=== PATIENT | male | born 1945 | race Caucasian/White ===

== ENCOUNTER 2023-04-13 11:52 | Inpatient (IN) | payer OTHER ==
[2023-04-13 12:21] VITALS: BMI 25.0
[2023-04-13] MEDS ORDERED: DEXTROSE 5% IVPB ONE (13:45)
[2023-04-13] MEDS ORDERED: ACYCLOVIR IVPB ONE (13:45)
[2023-04-13] MEDS ORDERED: WATER IVPB ONE (13:45)
[2023-04-13] MEDS ORDERED: FLUORESCEIN NA 1 EA STRIP OU ONE (14:14)
[2023-04-13] MEDS ORDERED: TETRACAINE 0.5% OPHTH SOLN 2 ML BOTTLE OU ONE (14:15)
[2023-04-13] MEDS ORDERED: FLUORESCEIN NA 1 EA STRIP ONE (14:17)
[2023-04-13] MEDS ORDERED: TETRACAINE 0.5% OPHTH SOLN 2 ML BOTTLE ONE (14:17)
[2023-04-13 14:44] LABS: BASO % 0.7 % (0-2.0); EOS % 1.4 % (0-4.5); HEMATOCRIT 41.3 % (35.4-49); HEMOGLOBIN 13.8 GM/dL (11.7-16.9); LYMPH % 24.3 % (8-40); MCH 30.5 pg (25.7-33.7); MCHC 33.4 g/dl (32.0-35.9); MEAN CELL VOLUME 91.2 fl (80-96); MEAN PLT VOLUME 8.4 fl (7.5-11.1); MONO % 7.9 % (3.8-10.2); NEUT % 65.7 % (42.8-82.8); PLATELET COUNT 179 10^3/uL (134-434); RBC 4.53 M/mm3 (4.00-5.60); RDW 13.9 % (11.9-15.9); WHITE BLOOD COUNT 6.4 K/mm3 (4.0-10.0)
[2023-04-13 15:11] LABS: POTASSIUM 4.3 mmol/L (3.5-5.1)
[2023-04-13 15:12] LABS: BLOOD UREA NITROGEN 15.8 mg/dL (7-18); INR 1.22 (0.83-1.09); PROTHROMBIN TIME (PATIENT) 14.1 SEC (9.7-13.0)
[2023-04-13 15:13] LABS: ALBUMIN 3.7 g/dl (3.4-5.0)
[2023-04-13 15:16] LABS: CREATININE 0.9 mg/dL (0.55-1.3)
[2023-04-13 15:17] LABS: BILIRUBIN,TOTAL 1.4 mg/dL (0.2-1)
[2023-04-13 15:18] LABS: TOT PROT 6.7 g/dl (6.4-8.2)
[2023-04-13] MEDS ORDERED: HALOPERIDOL LACTATE 5 MG/ML IM ONE (16:42)
[2023-04-13] MEDS ORDERED: MIDAZOLAM HCL 5 MG/1 ML Single Dose Vial IM ONE (16:42)
[2023-04-13] MEDS ORDERED: MIDAZOLAM HCL 5 MG/1 ML Single Dose Vial ONE (16:45)
[2023-04-13] MEDS ORDERED: HALOPERIDOL LACTATE 5 MG/ML ONE (16:45)
[2023-04-13] MEDS ORDERED: SODIUM CHLORIDE 1,000 ML IV SCH (20:30)
[2023-04-13] MEDS: DEXTROSE 5% IVPB SCH (21:50)
[2023-04-13] MEDS: WATER IVPB SCH (21:50)
[2023-04-13] MEDS: ACYCLOVIR IVPB SCH (21:50)
[2023-04-14] MEDS ORDERED: MIDAZOLAM HCL 5 MG/1 ML Single Dose Vial IM ONE (00:52)
[2023-04-14] MEDS ORDERED: HALOPERIDOL LACTATE 5 MG/ML IM ONE (00:52)
[2023-04-14] MEDS ORDERED: HALOPERIDOL LACTATE 5 MG/ML ONE (01:24)
[2023-04-14] MEDS ORDERED: MIDAZOLAM HCL 5 MG/1 ML Single Dose Vial ONE (01:35)
[2023-04-14] MEDS: ACYCLOVIR IVPB SCH ×2 (05:25→13:18)
[2023-04-14] MEDS: WATER IVPB SCH ×2 (05:25→13:18)
[2023-04-14] MEDS: DEXTROSE 5% IVPB SCH ×2 (05:25→13:18)
[2023-04-14] MEDS ORDERED: MAGNESIUM HYDROX 2400MG/30ML ORAL SUSPENSION 30 ML CUP PO PRN (08:32)
[2023-04-14] MEDS ORDERED: ERYTHROMYCIN 0.5% OPHTHALMIC OINTMENT 3.5 GM TUBE OD SCH (10:00)
[2023-04-14] MEDS ORDERED: ARTIFICIAL TEARS OPHTHALMIC DROPS OU SCH ×2 (10:00→14:00)
[2023-04-14] MEDS ORDERED: ERYTHROMYCIN 0.5% OPHTHALMIC OINTMENT 3.5 GM TUBE ONE (10:44)
[2023-04-14] MEDS ORDERED: levETIRAcetam 250 MG TABLET PO SCH (11:00)
[2023-04-14] MEDS ORDERED: MEMANTINE HCL 10 MG TABLET (FP) PO SCH (11:00)
[2023-04-14] MEDS ORDERED: FLUTICASONE PROP 0.05% 16 GM NASAL SPRAY NS SCH (11:00)
[2023-04-14] MEDS ORDERED: AMPICILLIN NA/SULBACTAM NA 3 GM in SODIUM CHLORIDE 100 ML IVPB SCH (12:30)
[2023-04-14] MEDS ORDERED: AMPICILLIN NA/SULBACTAM NA 3 GM VIAL ONE (12:51)
[2023-04-14 15:08] VITALS: BP 105/56; PULSE 85; RESP 20; TEMP 98.6
[2023-04-14] MEDS ORDERED: DOCUSATE SODIUM 100 MG CAPSULE (FP) PO SCH (22:00)
[2023-04-14] MEDS ORDERED: ATORVASTATIN CA 80 MG TABLET (FP) PO SCH (22:00)
== END 2023-04-14 15:37 | disposition short-term general hospital (02) | DRG 125 ==
LOC: JER 11:52 → JERBED 17:02 → OBSVTOIN 18:22
PROVIDERS: ADMIT Internal Medicine; ATTEND Internal Medicine
DX: B02.30 Zoster ocular disease, unspecified (principal); I10 Essential (primary) hypertension; I25.10 Atherosclerotic heart disease of native coronary artery without angina pectoris; E78.5 Hyperlipidemia, unspecified; E03.9 Hypothyroidism, unspecified; E80.6 Other disorders of bilirubin metabolism; G30.9 Alzheimer's disease, unspecified; F02.80 Dementia in other diseases classified elsewhere, unspecified severity, without behavioral disturbance, psychotic disturbance, mood disturbance, and anxiety; F32.A Depression, unspecified; K59.00 Constipation, unspecified; E53.8 Deficiency of other specified B group vitamins; Z85.46 Personal history of malignant neoplasm of prostate
CPT/HCPCS: 0241U-QW; 36415; 80053; 85025; 85610; 85730; 93005; 93010; 99285-25; G0378

== ENCOUNTER 2023-06-07 09:35 | Inpatient (IN) | payer OTHER ==
[2023-06-07 10:58] LABS: VENOUS BASE EXCESS 1.2 mmol/L (-2-2); VENOUS O2 SATURATION 24.2 % (70-80); VENOUS PCO2 54.8 mmHg (38-52); VENOUS PH 7.332 (7.310-7.410)
[2023-06-07 11:04] LABS: BASO % 0.9 % (0-2.0); EOS % 1.5 % (0-4.5); HEMATOCRIT 45.2 % (35.4-49); HEMOGLOBIN 15.5 GM/dL (11.7-16.9); LYMPH % 18.7 % (8-40); MCH 31.9 pg (25.7-33.7); MCHC 34.2 g/dl (32.0-35.9); MEAN CELL VOLUME 93.4 fl (80-96); MEAN PLT VOLUME 8.6 fl (7.5-11.1); MONO % 7.3 % (3.8-10.2); NEUT % 71.6 % (42.8-82.8); PLATELET COUNT 210 10^3/uL (134-434); RBC 4.84 M/mm3 (4.00-5.60); WHITE BLOOD COUNT 8.5 K/mm3 (4.0-10.0)
[2023-06-07 11:06] LABS: INR 1.1 (0.83-1.09); PROTHROMBIN TIME (PATIENT) 12.8 SEC (9.7-13.0)
[2023-06-07 11:19] LABS: EPI CELLS 5 /uL (0-25.1); HYALINE CASTS 0 /uL (0-3.1); URINE APPEARANCE CLEAR; URINE BACTERIA 45 /uL (0-1359); URINE BILIRUBIN NEGATIVE (NEGATIVE); URINE COLOR YELLOW; URINE GLUCOSE (UA) NEGATIVE (NEGATIVE); URINE KETONE NEGATIVE (NEGATIVE); URINE LEUK ESTERASE 1+ (NEGATIVE); URINE NITRITE NEGATIVE (NEGATIVE); URINE PROTEIN NEGATIVE (NEGATIVE); URINE RBC 5 /uL (0-23.9); URINE UROBILINOGEN 0.2 mg/dL (0.2-1.0); URINE WBC 55 /uL (0-25.8)
[2023-06-07 11:20] LABS: LACTIC ACID 2.2 mmol/L (0.4-2.0)
[2023-06-07 11:27] LABS: CALCIUM 10.4 mg/dL (8.5-10.1); MAGNESIUM 2.2 mg/dL (1.8-2.4)
[2023-06-07 11:28] LABS: ALBUMIN 4.4 g/dl (3.4-5.0); BLOOD UREA NITROGEN 17.3 mg/dL (7-18)
[2023-06-07 11:32] LABS: BILIRUBIN,TOTAL 0.9 mg/dL (0.2-1); TOT PROT 7.8 g/dl (6.4-8.2)
[2023-06-07] MEDS ORDERED: CEFTRIAXONE 1 GM/50 ML BAG ONE (15:21)
[2023-06-07] MEDS: CEFTRIAXONE 1,000 MG in DEXTROSE 5%-WATER - 50 ML IVPB ONE (15:32)
[2023-06-07] MEDS: SODIUM CHLORIDE 0.9% 500 ML INFUS.BAG IV ONE (15:32)
[2023-06-07] MEDS ORDERED: HALOPERIDOL 1 MG TABLET PO PRN (16:11)
[2023-06-07] MEDS ORDERED: levETIRAcetam 500 MG TABLET (FP) PO ONE (19:31)
[2023-06-07] MEDS: levETIRAcetam 250 MG TABLET PO SCH (19:36)
[2023-06-07] MEDS ORDERED: levETIRAcetam XR 750 MG TAB PO SCH (22:00)
[2023-06-07] MEDS ORDERED: ATORVASTATIN CA 80 MG TABLET (FP) ONE (22:30)
[2023-06-07] MEDS: risperiDONE 0.25 MG TABLET PO SCH (22:45)
[2023-06-07] MEDS: ATORVASTATIN CA 80 MG TABLET (FP) PO SCH (22:45)
[2023-06-07] MEDS: MEMANTINE HCL 10 MG TABLET (FP) PO SCH (22:45)
[2023-06-07] MEDS ORDERED: ACETAMINOPHEN 325 MG TABLET (FP) PO PRN (23:01)
[2023-06-07] MEDS ORDERED: MAGNESIUM HYDROX 2400MG/30ML ORAL SUSPENSION 30 ML CUP PO PRN (23:03)
[2023-06-08 00:07] VITALS: BMI 22.1
[2023-06-08] MEDS ORDERED: HALOPERIDOL 1 MG TABLET PO PRN (05:43)
[2023-06-08 08:03] LABS: HEMATOCRIT 39.8 % (35.4-49); HEMOGLOBIN 13.7 GM/dL (11.7-16.9); MCHC 34.4 g/dl (32.0-35.9); MEAN CELL VOLUME 93.1 fl (80-96); MEAN PLT VOLUME 8.3 fl (7.5-11.1); PLATELET COUNT 174 10^3/uL (134-434); RBC 4.28 M/mm3 (4.00-5.60); RDW 15.2 % (11.9-15.9); WHITE BLOOD COUNT 6.6 K/mm3 (4.0-10.0)
[2023-06-08 08:33] LABS: POTASSIUM 3.7 mmol/L (3.5-5.1)
[2023-06-08 08:36] LABS: CALCIUM 9.3 mg/dL (8.5-10.1)
[2023-06-08 08:37] LABS: BLOOD UREA NITROGEN 14.9 mg/dL (7-18)
[2023-06-08 08:38] LABS: ALBUMIN 3.8 g/dl (3.4-5.0); MAGNESIUM 2.1 mg/dL (1.8-2.4)
[2023-06-08 08:40] LABS: PHOSPHOROUS 2.7 mg/dL (2.5-4.9)
[2023-06-08 08:41] LABS: TOT PROT 6.7 g/dl (6.4-8.2)
[2023-06-08] MEDS: FLUTICASONE PROP 0.05% 16 GM NASAL SPRAY NS SCH (09:40)
[2023-06-08] MEDS: CEFTRIAXONE 1 GM in DEXTROSE 5%-WATER - 50 ML IVPB SCH (09:40)
[2023-06-08] MEDS: HALOPERIDOL LACTATE 5 MG/ML IM ONE (11:49)
[2023-06-08] MEDS: HALOPERIDOL LACTATE 5 MG/ML IM PRN (16:15)
[2023-06-08] MEDS: LORazepam 2 MG/ML SDV VIAL IVPUSH PRN (19:57)
[2023-06-08] MEDS: DOCUSATE SODIUM 100 MG CAPSULE (FP) PO SCH (21:46)
[2023-06-09] MEDS: risperiDONE 1 MG TABLET PO ONE (10:49)
[2023-06-10 09:36] LABS: HEMATOCRIT 38.6 % (35.4-49); HEMOGLOBIN 13.1 GM/dL (11.7-16.9); MCH 31.8 pg (25.7-33.7); MCHC 34.1 g/dl (32.0-35.9); MEAN CELL VOLUME 93.3 fl (80-96); PLATELET COUNT 156 10^3/uL (134-434); RBC 4.13 M/mm3 (4.00-5.60); RDW 14.9 % (11.9-15.9); WHITE BLOOD COUNT 6.6 K/mm3 (4.0-10.0)
[2023-06-10] MEDS: risperiDONE 1 MG TABLET PO SCH (09:57)
[2023-06-10 10:10] LABS: CALCIUM 8.7 mg/dL (8.5-10.1)
[2023-06-10 10:11] LABS: BLOOD UREA NITROGEN 18.4 mg/dL (7-18)
[2023-06-10 10:14] LABS: CREATININE 0.8 mg/dL (0.55-1.3)
[2023-06-10 22:17] VITALS: RESP 18
[2023-06-11 06:08] VITALS: BP 148/74; PULSE 50; TEMP 97.7
[2023-06-11] MEDS: ASPIRIN 81 MG CHEWABLE TABLETS PO SCH (10:57)
== END 2023-06-11 12:00 | DRG 689 ==
LOC: JER 09:35 → JERBED 13:58 → J7W 23:39
PROVIDERS: ADMIT Internal Medicine; ATTEND Internal Medicine
DX: N39.0 Urinary tract infection, site not specified (principal); G93.41 Metabolic encephalopathy; F03.92 Unspecified dementia, unspecified severity, with psychotic disturbance; E78.5 Hyperlipidemia, unspecified
CPT/HCPCS: 0241U-QW; 36415; 70450-TC; 70544-TC; 70547-TC; 70551-TC; 71045-TC-FY; 80048; 80053; 80177; 81003; 82803; 83605; 83735; 84100; 84443; 84484; 85025; 85027; 85610; 85730; 86850; 86900; 86901; 87040; 87086; 93005; 93010; 99285-25

== ENCOUNTER 2023-09-23 18:01 | Emergency (ER) | payer OTHER ==
[2023-09-23 18:31] VITALS: BMI 21.5
[2023-09-23 20:50] LABS: BASO % 0.7 % (0-2.0); EOS % 1.6 % (0-4.5); HEMATOCRIT 40.5 % (35.4-49); HEMOGLOBIN 13.7 GM/dL (11.7-16.9); LYMPH % 21.1 % (8-40); MCH 30.7 pg (25.7-33.7); MCHC 33.8 g/dl (32.0-35.9); MEAN CELL VOLUME 90.8 fl (80-96); MEAN PLT VOLUME 8.1 fl (7.5-11.1); MONO % 8.6 % (3.8-10.2); PLATELET COUNT 162 10^3/uL (134-434); RBC 4.46 M/mm3 (4.00-5.60); RDW 14.1 % (11.9-15.9); WHITE BLOOD COUNT 6.8 K/mm3 (4.0-10.0)
[2023-09-23 21:30] LABS: POTASSIUM 4.2 mmol/L (3.5-5.1)
[2023-09-23 21:32] LABS: BLOOD UREA NITROGEN 23.5 mg/dL (7-18); CALCIUM 8.9 mg/dL (8.5-10.1)
[2023-09-23 21:33] LABS: ALBUMIN 3.7 g/dl (3.4-5.0)
[2023-09-23 21:36] LABS: CREATININE 1.1 mg/dL (0.55-1.3)
[2023-09-23 21:37] LABS: BILIRUBIN,TOTAL 0.7 mg/dL (0.2-1); TOT PROT 6.6 g/dl (6.4-8.2)
[2023-09-24 00:55] LABS: EPI CELLS 2 /uL (0-25.1); HYALINE CASTS 0 /uL (0-3.1); URINE APPEARANCE CLEAR; URINE BACTERIA >9,000 /uL (0-1359); URINE BILIRUBIN NEGATIVE (NEGATIVE); URINE COLOR YELLOW; URINE GLUCOSE (UA) NEGATIVE (NEGATIVE); URINE KETONE NEGATIVE (NEGATIVE); URINE LEUK ESTERASE 1+ (NEGATIVE); URINE NITRITE POSITIVE (NEGATIVE); URINE PROTEIN NEGATIVE (NEGATIVE); URINE RBC 15 /uL (0-23.9); URINE UROBILINOGEN 0.2 mg/dL (0.2-1.0); URINE WBC 218 /uL (0-25.8)
[2023-09-24] MEDS: CEFTRIAXONE 1,000 MG in DEXTROSE 5%-WATER - 50 ML IVPB ONE (02:03)
[2023-09-24] MEDS ORDERED: CEFTRIAXONE 1 GM/50 ML BAG ONE (02:04)
[2023-09-24 02:05] VITALS: BP 119/72; PULSE 61; RESP 16; TEMP 97.1
[2023-09-24] MEDS: SODIUM CHLORIDE 0.9% 500 ML INFUS.BAG IV ONE (03:17)
== END 2023-09-24 06:01 ==
LOC: JER 18:01
DX: R45.1 Restlessness and agitation (principal); N39.0 Urinary tract infection, site not specified; F03.90 Unspecified dementia, unspecified severity, without behavioral disturbance, psychotic disturbance, mood disturbance, and anxiety
CPT/HCPCS: 36415; 70450-TC; 80053; 80177; 81003; 85025; 87086; 87186; 93005; 93010; 99285-25

== ENCOUNTER 2023-09-27 06:00 | Emergency (ER) | payer OTHER ==
[2023-09-27 06:10] VITALS: TEMP 98.8; BMI 19.0
[2023-09-27 06:38] LABS: EPI CELLS 8 /uL (0-25.1); HYALINE CASTS 0 /uL (0-3.1); PH,URINE 7.5 (5.0-8.0); URINE APPEARANCE CLEAR; URINE BACTERIA 5097 /uL (0-1359); URINE BILIRUBIN NEGATIVE (NEGATIVE); URINE COLOR YELLOW; URINE GLUCOSE (UA) NEGATIVE (NEGATIVE); URINE KETONE NEGATIVE (NEGATIVE); URINE LEUK ESTERASE TRACE (NEGATIVE); URINE NITRITE POSITIVE (NEGATIVE); URINE PROTEIN NEGATIVE (NEGATIVE); URINE RBC 5 /uL (0-23.9); URINE WBC 24 /uL (0-25.8)
[2023-09-27 07:01] LABS: POTASSIUM 4.6 mmol/L (3.5-5.1)
[2023-09-27 07:04] LABS: ALBUMIN 3.7 g/dl (3.4-5.0); BLOOD UREA NITROGEN 15.5 mg/dL (7-18); CALCIUM 8.9 mg/dL (8.5-10.1); MAGNESIUM 1.9 mg/dL (1.8-2.4)
[2023-09-27 07:06] LABS: CREATININE 0.8 mg/dL (0.55-1.3)
[2023-09-27 07:08] LABS: TOT PROT 6.7 g/dl (6.4-8.2)
[2023-09-27 07:52] LABS: RDW 14.2 % (11.9-15.9)
[2023-09-27] MEDS ORDERED: MAGNESIUM 1GM/D5W - 1 GM/100 ML IVPB IVPB ONE (07:53)
[2023-09-27 07:59] LABS: BASO % 1.1 % (0-2.0); EOS % 1.8 % (0-4.5); HEMATOCRIT 39.9 % (35.4-49); HEMOGLOBIN 13.8 GM/dL (11.7-16.9); LYMPH % 20.6 % (8-40); MCH 31.3 pg (25.7-33.7); MCHC 34.5 g/dl (32.0-35.9); MEAN CELL VOLUME 90.6 fl (80-96); MEAN PLT VOLUME 9.4 fl (7.5-11.1); MONO % 8.2 % (3.8-10.2); NEUT % 68.3 % (42.8-82.8); PLATELET COUNT 178 10^3/uL (134-434)
[2023-09-27 08:05] LABS: WHITE BLOOD COUNT 11.5 K/mm3 (4.0-10.0)
[2023-09-27 08:48] LABS: PLATELET ESTIMATE ADEQUATE
[2023-09-27] MEDS ORDERED: risperiDONE 0.5 MG TABLET ONE (09:57)
[2023-09-27] MEDS: risperiDONE 1 MG TABLET PO ONE (09:58)
[2023-09-27 13:57] VITALS: BP 133/78; PULSE 76; RESP 16
== END 2023-09-27 14:10 ==
LOC: JER 06:00
DX: R41.82 Altered mental status, unspecified (principal); R45.1 Restlessness and agitation; N39.0 Urinary tract infection, site not specified; Z20.822 Contact with and (suspected) exposure to COVID-19
CPT/HCPCS: 0241U-QW; 36415; 71045-TC-FY; 80053; 81003; 82962; 83735; 85025; 87086; 87186; 93005; 93010; 99285-25

== ENCOUNTER 2023-11-03 12:15 | Emergency (ER) | payer OTHER ==
[2023-11-03 13:04] VITALS: BMI 24.3
[2023-11-03] MEDS: SODIUM CHLORIDE 0.9% 500 ML INFUS.BAG IV ONE (13:48)
[2023-11-03 13:49] LABS: BASO % 0.3 % (0-2.0); EOS % 0.6 % (0-4.5); HEMATOCRIT 39.8 % (35.4-49); HEMOGLOBIN 13.5 GM/dL (11.7-16.9); LYMPH % 14.2 % (8-40); MCH 30.8 pg (25.7-33.7); MCHC 33.9 g/dl (32.0-35.9); MEAN CELL VOLUME 90.7 fl (80-96); MEAN PLT VOLUME 8.4 fl (7.5-11.1); MONO % 5.5 % (3.8-10.2); NEUT % 79.4 % (42.8-82.8); PLATELET COUNT 172 10^3/uL (134-434); RBC 4.39 M/mm3 (4.00-5.60); RDW 14.9 % (11.9-15.9); WHITE BLOOD COUNT 8.4 K/mm3 (4.0-10.0)
[2023-11-03 13:52] LABS: EPI CELLS 17 /uL (0-25.1); HYALINE CASTS 1 /uL (0-3.1); URINE APPEARANCE CLEAR; URINE BACTERIA 9 /uL (0-1359); URINE BILIRUBIN NEGATIVE (NEGATIVE); URINE COLOR YELLOW; URINE GLUCOSE (UA) NEGATIVE (NEGATIVE); URINE KETONE NEGATIVE (NEGATIVE); URINE LEUK ESTERASE NEGATIVE (NEGATIVE); URINE NITRITE NEGATIVE (NEGATIVE); URINE PROTEIN 1+ (NEGATIVE); URINE RBC 20 /uL (0-23.9); URINE WBC 14 /uL (0-25.8)
[2023-11-03 14:07] LABS: POTASSIUM 4.5 mmol/L (3.5-5.1)
[2023-11-03 14:09] LABS: ALBUMIN 3.6 g/dl (3.4-5.0); BLOOD UREA NITROGEN 18.4 mg/dL (7-18); CALCIUM 9.5 mg/dL (8.5-10.1)
[2023-11-03 14:12] LABS: CREATININE 1.1 mg/dL (0.55-1.3)
[2023-11-03 14:14] LABS: TOT PROT 6.3 g/dl (6.4-8.2)
[2023-11-03 15:46] VITALS: TEMP 97.6
[2023-11-03] MEDS ORDERED: HALOPERIDOL LACTATE 5 MG/ML ONE ×2 (16:04→16:08)
[2023-11-03] MEDS: HALOPERIDOL LACTATE 5 MG/ML IM ONE (16:21)
[2023-11-03 18:45] VITALS: BP 113/77; PULSE 74; RESP 18
== END 2023-11-03 18:00 ==
LOC: JER 12:15
PROC: 3E023GC Introduction of Other Therapeutic Substance into Muscle, Percutaneous Approach (ICD-10-PCS; principal; 2023-11-03)
DX: R41.82 Altered mental status, unspecified (principal)
CPT/HCPCS: 36415; 70450-TC; 71045-TC-FY; 80053; 81003; 82962; 85025; 87086; 99285-25

== ENCOUNTER 2023-11-11 11:27 | Emergency (ER) | payer OTHER ==
[2023-11-11 12:07] VITALS: BMI 25.8
[2023-11-11 12:41] LABS: BASO % 0.5 % (0-2.0); HEMATOCRIT 39.6 % (35.4-49); HEMOGLOBIN 13.2 GM/dL (11.7-16.9); LYMPH % 25.2 % (8-40); MCH 30.7 pg (25.7-33.7); MCHC 33.4 g/dl (32.0-35.9); MEAN CELL VOLUME 91.9 fl (80-96); MONO % 8.5 % (3.8-10.2); NEUT % 63.8 % (42.8-82.8); PLATELET COUNT 169 10^3/uL (134-434); RDW 14.7 % (11.9-15.9); WHITE BLOOD COUNT 5.4 K/mm3 (4.0-10.0)
[2023-11-11 12:45] LABS: INR 1.1 (0.83-1.09); PROTHROMBIN TIME (PATIENT) 12.6 SEC (9.7-13.0)
[2023-11-11 12:47] LABS: ACTIVATED PTT 27.4 SECONDS (25.2-36.5)
[2023-11-11 12:59] LABS: POTASSIUM 4.1 mmol/L (3.5-5.1)
[2023-11-11 13:01] LABS: BLOOD UREA NITROGEN 19.2 mg/dL (7-18); CALCIUM 9.4 mg/dL (8.5-10.1)
[2023-11-11 13:03] LABS: ALBUMIN 3.7 g/dl (3.4-5.0); MAGNESIUM 2.4 mg/dL (1.8-2.4)
[2023-11-11 13:05] LABS: CREATININE 0.9 mg/dL (0.55-1.3)
[2023-11-11 13:06] LABS: TOT PROT 6.5 g/dl (6.4-8.2)
[2023-11-11 13:08] LABS: BILIRUBIN,TOTAL 1.1 mg/dL (0.2-1)
[2023-11-11] MEDS: SODIUM CHLORIDE 0.9% 500 ML INFUS.BAG IV ONE (14:23)
[2023-11-11 15:23] LABS: URINE APPEARANCE CLEAR; URINE BILIRUBIN NEGATIVE (NEGATIVE); URINE COLOR YELLOW; URINE GLUCOSE (UA) NEGATIVE (NEGATIVE); URINE KETONE NEGATIVE (NEGATIVE); URINE LEUK ESTERASE NEGATIVE (NEGATIVE); URINE NITRITE NEGATIVE (NEGATIVE); URINE PROTEIN NEGATIVE (NEGATIVE)
[2023-11-12 03:57] VITALS: BP 128/91; PULSE 82; RESP 13; TEMP 97.8
== END 2023-11-12 03:58 ==
LOC: JER 11:27
DX: F03.90 Unspecified dementia, unspecified severity, without behavioral disturbance, psychotic disturbance, mood disturbance, and anxiety (principal); R29.6 Repeated falls; W18.30XA Fall on same level, unspecified, initial encounter
CPT/HCPCS: 36415; 70450-TC; 71045-TC-FY; 72125-TC; 80053; 81003; 83735; 84484; 85025; 85610; 85730; 87086; 93005; 93010; 99285-25

== ENCOUNTER 2023-12-18 19:42 | Inpatient (IN) | payer OTHER ==
[2023-12-18 20:29] VITALS: BMI 23.5
[2023-12-18 21:07] LABS: BASO % 0.5 % (0-2.0); EOS % 2.1 % (0-4.5); HEMATOCRIT 39.4 % (35.4-49); HEMOGLOBIN 13.3 GM/dL (11.7-16.9); LYMPH % 21.5 % (8-40); MCH 30.8 pg (25.7-33.7); MCHC 33.8 g/dl (32.0-35.9); MEAN PLT VOLUME 8.1 fl (7.5-11.1); MONO % 9.5 % (3.8-10.2); NEUT % 66.4 % (42.8-82.8); PLATELET COUNT 172 10^3/uL (134-434); RBC 4.33 M/mm3 (4.00-5.60); RDW 14.2 % (11.9-15.9); WHITE BLOOD COUNT 5.6 K/mm3 (4.0-10.0)
[2023-12-18 21:18] LABS: INR 1.14 (0.83-1.09); PROTHROMBIN TIME (PATIENT) 12.8 SEC (9.7-13.0)
[2023-12-18 21:27] LABS: ALBUMIN 3.6 g/dl (3.4-5.0); MAGNESIUM 2.3 mg/dL (1.8-2.4)
[2023-12-18 21:32] LABS: BILIRUBIN,TOTAL 0.5 mg/dL (0.2-1); TOT PROT 6.3 g/dl (6.4-8.2)
[2023-12-18] MEDS: SODIUM CHLORIDE 0.9% 500 ML INFUS.BAG IV ONE (22:15)
[2023-12-18 23:43] LABS: HIV INTERPRETATION NEGATIVE (NEGATIVE)
[2023-12-19 00:35] LABS: EPI CELLS 1 /uL (0-25.1); HYALINE CASTS 5 /uL (0-3.1); PH,URINE 5.5 (5.0-8.0); URINE APPEARANCE CLEAR; URINE BACTERIA 119 /uL (0-1359); URINE BILIRUBIN NEGATIVE (NEGATIVE); URINE COLOR YELLOW; URINE GLUCOSE (UA) NEGATIVE (NEGATIVE); URINE KETONE NEGATIVE (NEGATIVE); URINE LEUK ESTERASE 2+ (NEGATIVE); URINE NITRITE NEGATIVE (NEGATIVE); URINE PROTEIN TRACE (NEGATIVE); URINE RBC 23 /uL (0-23.9); URINE WBC 888 /uL (0-25.8)
[2023-12-19] MEDS: PIPERACILLIN/TAZOB 4.5 GM 4.5 GM in DEXTROSE 5%-WATER 100 ML IVPB ONE (01:11)
[2023-12-19] MEDS ORDERED: MEROPENEM 1 GM VIAL (RESTRICTED TO ID) IVPB ONE (01:16)
[2023-12-19] MEDS ORDERED: DEXTROSE 5%-WATER 100 ML IVPB ONE (01:17)
[2023-12-19] MEDS: MEROPENEM 1 GM in DEXTROSE 5%-WATER 100 ML IVPB ONE (01:18)
[2023-12-19 08:53] LABS: HEMATOCRIT 40.3 % (35.4-49); HEMOGLOBIN 13.5 GM/dL (11.7-16.9); MCH 30.6 pg (25.7-33.7); MCHC 33.5 g/dl (32.0-35.9); MEAN CELL VOLUME 91.4 fl (80-96); MEAN PLT VOLUME 8.5 fl (7.5-11.1); PLATELET COUNT 170 10^3/uL (134-434); RBC 4.41 M/mm3 (4.00-5.60); RDW 13.8 % (11.9-15.9); WHITE BLOOD COUNT 5.2 K/mm3 (4.0-10.0)
[2023-12-19 09:09] LABS: POTASSIUM 3.9 mmol/L (3.5-5.1)
[2023-12-19] MEDS: ERTAPENEM SODIUM 1 GM in SODIUM CHLORIDE 50 ML IVPB SCH (09:11)
[2023-12-19 09:12] LABS: ALBUMIN 3.5 g/dl (3.4-5.0); BLOOD UREA NITROGEN 14.9 mg/dL (7-18); CALCIUM 9.2 mg/dL (8.5-10.1); MAGNESIUM 2.2 mg/dL (1.8-2.4)
[2023-12-19 09:15] LABS: CREATININE 0.9 mg/dL (0.55-1.3)
[2023-12-19] MEDS: MEMANTINE HCL 10 MG TABLET (FP) PO SCH (09:15)
[2023-12-19] MEDS: QUEtiapine FUMARATE 25 MG TABLET PO SCH (09:15)
[2023-12-19 09:16] LABS: PHOSPHOROUS 2.5 mg/dL (2.5-4.9)
[2023-12-19 09:17] LABS: TOT PROT 6.2 g/dl (6.4-8.2)
[2023-12-19] MEDS ORDERED: PATIENT'S OWN MEDICATION (NON-FORMULARY) (Levetiracetam [Levetiracetam] 750 MG Tablet) PO SCH (10:00)
[2023-12-19] MEDS: LACTATED RINGERS SOLUTION 1,000 ML/1,000 ML INFUS.BAG IV SCH (16:52)
[2023-12-19] MEDS ORDERED: QUEtiapine FUMARATE 25 MG TABLET ONE (23:55)
[2023-12-19] MEDS ORDERED: ATORVASTATIN CA 80 MG TABLET (FP) ONE (23:55)
[2023-12-20] MEDS ORDERED: traZODone HCL 50 MG TABLET (FP) ONE (00:02)
[2023-12-20] MEDS: ATORVASTATIN CA 80 MG TABLET (FP) PO SCH (00:36)
[2023-12-20] MEDS: traZODone HCL 50 MG TABLET (FP) PO SCH (00:36)
[2023-12-20] MEDS: QUEtiapine FUMARATE 25 MG TABLET PO SCH (00:37)
[2023-12-20 06:02] VITALS: RESP 18
[2023-12-20 08:42] LABS: HEMATOCRIT 39.4 % (35.4-49); HEMOGLOBIN 13.7 GM/dL (11.7-16.9); MCH 31.3 pg (25.7-33.7); MCHC 34.9 g/dl (32.0-35.9); MEAN CELL VOLUME 89.7 fl (80-96); MEAN PLT VOLUME 8.3 fl (7.5-11.1); PLATELET COUNT 162 10^3/uL (134-434); RBC 4.39 M/mm3 (4.00-5.60); RDW 13.7 % (11.9-15.9); WHITE BLOOD COUNT 4.8 K/mm3 (4.0-10.0)
[2023-12-20 08:58] LABS: POTASSIUM 3.8 mmol/L (3.5-5.1)
[2023-12-20 09:11] LABS: MAGNESIUM 2.2 mg/dL (1.8-2.4)
[2023-12-20 09:15] LABS: CREATININE 0.9 mg/dL (0.55-1.3); PHOSPHOROUS 2.9 mg/dL (2.5-4.9)
[2023-12-20] MEDS: HALOPERIDOL LACTATE 5 MG/ML IM ONE (14:36)
[2023-12-20] MEDS ORDERED: MEROPENEM 1 GM in DEXTROSE 5%-WATER 100 ML IVPB SCH (14:45)
[2023-12-20] MEDS: MEROPENEM 1 GM in DEXTROSE 5%-WATER 100 ML IVPB SCH ×2 (16:06→17:27)
[2023-12-21] MEDS: QUEtiapine FUMARATE 50 MG TABLET PO SCH (04:49)
[2023-12-21 08:22] LABS: BASO % 0.5 % (0-2.0); EOS % 1.5 % (0-4.5); HEMATOCRIT 40.4 % (35.4-49); HEMOGLOBIN 13.8 GM/dL (11.7-16.9); LYMPH % 25.7 % (8-40); MCHC 34.2 g/dl (32.0-35.9); MEAN CELL VOLUME 90.8 fl (80-96); MEAN PLT VOLUME 8.5 fl (7.5-11.1); NEUT % 64.3 % (42.8-82.8); PLATELET COUNT 170 10^3/uL (134-434); RBC 4.45 M/mm3 (4.00-5.60); RDW 13.5 % (11.9-15.9); WHITE BLOOD COUNT 5.9 K/mm3 (4.0-10.0)
[2023-12-21 08:34] LABS: POTASSIUM 4.1 mmol/L (3.5-5.1)
[2023-12-21 08:40] LABS: ALBUMIN 3.6 g/dl (3.4-5.0); BLOOD UREA NITROGEN 12.9 mg/dL (7-18); CALCIUM 10.5 mg/dL (8.5-10.1); MAGNESIUM 2.2 mg/dL (1.8-2.4)
[2023-12-21 08:43] LABS: CREATININE 0.8 mg/dL (0.55-1.3)
[2023-12-21 08:45] LABS: BILIRUBIN,TOTAL 1.2 mg/dL (0.2-1); TOT PROT 6.4 g/dl (6.4-8.2)
[2023-12-21] MEDS: ASPIRIN 81 MG CHEWABLE TABLETS PO SCH (11:00)
[2023-12-21] MEDS ORDERED: traZODone HCL 50 MG TABLET (FP) PO SCH (15:09)
[2023-12-21] MEDS: QUEtiapine FUMARATE 50 MG TABLET PO ONE (19:14)
[2023-12-21] MEDS: HALOPERIDOL LACTATE 5 MG/ML IM ONE (19:15)
[2023-12-21] MEDS: QUEtiapine FUMARATE 25 MG TABLET PO SCH (21:56)
[2023-12-21] MEDS: traZODone HCL 50 MG TABLET (FP) PO SCH (21:56)
[2023-12-22] MEDS: CEFTRIAXONE 1 GM in DEXTROSE 5%-WATER - 50 ML IVPB SCH (10:40)
[2023-12-22] MEDS: QUEtiapine FUMARATE 50 MG TABLET PO SCH (10:40)
[2023-12-22 10:45] LABS: BASO % 0.5 % (0-2.0); EOS % 1.7 % (0-4.5); HEMATOCRIT 40.6 % (35.4-49); LYMPH % 28.7 % (8-40); MCH 31.2 pg (25.7-33.7); MCHC 34.5 g/dl (32.0-35.9); MEAN CELL VOLUME 90.3 fl (80-96); MEAN PLT VOLUME 8.7 fl (7.5-11.1); MONO % 8.6 % (3.8-10.2); NEUT % 60.5 % (42.8-82.8); PLATELET COUNT 189 10^3/uL (134-434); RDW 14.1 % (11.9-15.9); WHITE BLOOD COUNT 5.8 K/mm3 (4.0-10.0)
[2023-12-22 11:07] LABS: POTASSIUM 4.4 mmol/L (3.5-5.1)
[2023-12-22 11:13] LABS: CALCIUM 9.2 mg/dL (8.5-10.1)
[2023-12-22 11:14] LABS: ALBUMIN 3.7 g/dl (3.4-5.0); BLOOD UREA NITROGEN 17.6 mg/dL (7-18); MAGNESIUM 2.6 mg/dL (1.8-2.4)
[2023-12-22 11:16] LABS: BILIRUBIN,TOTAL 1.2 mg/dL (0.2-1)
[2023-12-22 11:17] LABS: CREATININE 0.8 mg/dL (0.55-1.3); TOT PROT 6.6 g/dl (6.4-8.2)
[2023-12-22 23:21] VITALS: BP 105/71; PULSE 69; TEMP 97.2
== END 2023-12-23 01:10 | DRG 690 ==
LOC: JER 19:42 → JERBED 12-19 00:40 → OBSVTOIN 12-19 03:50 → J8W 12-20 01:15
PROVIDERS: ADMIT Internal Medicine; ATTEND Nurse Practitioner Acute Care
DX: N39.0 Urinary tract infection, site not specified (principal); F02.811 Dementia in other diseases classified elsewhere, unspecified severity, with agitation; E78.5 Hyperlipidemia, unspecified; G30.9 Alzheimer's disease, unspecified; F29 Unspecified psychosis not due to a substance or known physiological condition; I25.10 Atherosclerotic heart disease of native coronary artery without angina pectoris; R29.6 Repeated falls
CPT/HCPCS: 0241U-QW; 36415; 70450-TC; 71045-TC-FY; 76775-TC; 80048; 80053; 81003; 83735; 84100; 84484; 85025; 85027; 85610; 85730; 86803; 86850; 86900; 86901; 87086; 87186; 87389; 93005; 93010; 97161-GP; 99285-25; G0378

== ENCOUNTER 2024-03-10 16:53 | Emergency (ER) | payer OTHER ==
[2024-03-10 17:18] VITALS: TEMP 97.6; BMI 22.7
[2024-03-10 18:00] LABS: BASO % 0.5 % (0-2.0); EOS % 2.1 % (0-4.5); HEMATOCRIT 38.3 % (35.4-49); HEMOGLOBIN 13.4 GM/dL (11.7-16.9); LYMPH % 15.3 % (8-40); MCH 31.4 pg (25.7-33.7); MCHC 34.9 g/dl (32.0-35.9); MEAN CELL VOLUME 89.9 fl (80-96); MEAN PLT VOLUME 8.2 fl (7.5-11.1); MONO % 7.6 % (3.8-10.2); NEUT % 74.5 % (42.8-82.8); PLATELET COUNT 211 10^3/uL (134-434); RBC 4.26 M/mm3 (4.00-5.60); RDW 14.5 % (11.9-15.9); WHITE BLOOD COUNT 8.3 K/mm3 (4.0-10.0)
[2024-03-10 18:05] LABS: EPI CELLS 9 /uL (0-25.1); HYALINE CASTS 12 /uL (0-3.1); PH,URINE >= 9.0 (5.0-8.0); URINE APPEARANCE TURBID; URINE BACTERIA 4592 /uL (0-1359); URINE BILIRUBIN 1+ (NEGATIVE); URINE COLOR RED; URINE GLUCOSE (UA) NEGATIVE (NEGATIVE); URINE KETONE NEGATIVE (NEGATIVE); URINE LEUK ESTERASE 3+ (NEGATIVE); URINE NITRITE POSITIVE (NEGATIVE); URINE PROTEIN 3+ (NEGATIVE); URINE UROBILINOGEN 0.2 mg/dL (0.2-1.0); URINE WBC 522 /uL (0-25.8)
[2024-03-10 18:07] LABS: INR 1.18 (0.83-1.09); PROTHROMBIN TIME (PATIENT) 13.3 SEC (9.7-13.0)
[2024-03-10 18:10] LABS: ACTIVATED PTT 30.7 SECONDS (25.2-36.5)
[2024-03-10 18:24] LABS: POTASSIUM 4.2 mmol/L (3.5-5.1)
[2024-03-10 18:24] LABS: URINE RBC 22099.4 /uL (0-23.9)
[2024-03-10 18:25] LABS: CALCIUM 9.3 mg/dL (8.5-10.1)
[2024-03-10 18:26] LABS: ALBUMIN 3.7 g/dl (3.4-5.0); BLOOD UREA NITROGEN 18.8 mg/dL (7-18); MAGNESIUM 1.9 mg/dL (1.8-2.4)
[2024-03-10 18:31] LABS: BILIRUBIN,TOTAL 0.9 mg/dL (0.2-1); TOT PROT 6.6 g/dl (6.4-8.2)
[2024-03-10] MEDS ORDERED: CEFTRIAXONE 1 G/50 ML PREMIX 50 ML IVPB ONE (19:04)
[2024-03-10] MEDS: CEFTRIAXONE 1,000 MG in DEXTROSE 5%-WATER - 50 ML IVPB ONE (19:29)
[2024-03-10 21:30] VITALS: BP 132/73; PULSE 77; RESP 18
[2024-03-10] MEDS ORDERED: QUEtiapine FUMARATE 25 MG TABLET ONE (21:41)
[2024-03-10] MEDS: QUEtiapine FUMARATE 25 MG TABLET PO ONE (21:44)
== END 2024-03-11 01:23 | disposition home or self-care (01) ==
LOC: JER 16:53
DX: Z00.00 Encounter for general adult medical examination without abnormal findings (principal); Z20.822 Contact with and (suspected) exposure to COVID-19
CPT/HCPCS: 0241U-QW; 36415; 70450-TC; 71045-TC-FY; 80053; 81003; 83735; 84484; 85025; 85610; 85730; 86850; 86900; 86901; 87086; 87186; 93005; 93010; 99285-25

== ENCOUNTER 2024-09-21 15:40 | Inpatient (IN) | payer OTHER ==
[2024-09-21 15:50] VITALS: BMI 21.8
[2024-09-21 17:34] LABS: ABSOLUTE IMMATURE GRANULOCYTES 0.05 x10^3/uL (0.0-0.031); BASOPHILS # 0.04 x10^3/uL (0.01-0.08); EOSINOPHIL % 0.9 % (0.8-7.0); EOSINOPHILS # 0.11 x10^3/uL (0.04-0.54); MCHC 31.4 g/dl (32.3-36.5); MEAN CELL VOLUME 96.5 fl (79.0-92.2); MEAN PLT VOLUME 10.7 fl (9.4-12.4); MONOCYTE # 0.59 x10^3/uL (0.30-0.82); MONOCYTE % 4.8 % (5.3-12.2); RDW 13.5 % (12.6-16.6)
[2024-09-21 17:48] LABS: URINE APPEARANCE CLEAR; URINE BILIRUBIN NEGATIVE (NEGATIVE); URINE COLOR YELLOW; URINE GLUCOSE (UA) NEGATIVE (NEGATIVE); URINE KETONE 1+ (NEGATIVE); URINE LEUK ESTERASE NEGATIVE (NEGATIVE); URINE NITRITE NEGATIVE (NEGATIVE); URINE PROTEIN TRACE (NEGATIVE); URINE UROBILINOGEN 1.0 mg/dL (0.2-1.0)
[2024-09-21] MEDS: SODIUM CHLORIDE 500 ML IV STA (17:48)
[2024-09-21 17:55] LABS: GLUCOSE,RANDOM 109.0 mg/dL (74-106)
[2024-09-21 17:56] LABS: CO2 32.0 mmol/L (21-32)
[2024-09-21 17:58] LABS: CREATININE 0.8 mg/dL (0.55-1.3); SGOT/AST 27.0 U/L (15-37); SGPT/ALT 29.0 U/L (13-61)
[2024-09-21 18:00] LABS: TOT PROT 6.8 g/dl (6.4-8.2)
[2024-09-21 18:01] LABS: ALK PHOS 129.0 U/L (45-117)
[2024-09-21 21:38] LABS: INR 1.45 (0.83-1.09); PROTHROMBIN TIME (PATIENT) 15.8 SEC (9.7-13.0)
[2024-09-21] MEDS: SODIUM CHLORIDE 1,500 ML IV STA (21:48)
[2024-09-21] MEDS ORDERED: MAGNESIUM HYDROX 2400MG/30ML ORAL SUSPENSION 30 ML CUP PO PRN (23:26)
[2024-09-22 08:27] LABS: ABSOLUTE IMMATURE GRANULOCYTES 0.03 x10^3/uL (0.0-0.031); BASOPHILS # 0.03 x10^3/uL (0.01-0.08); EOSINOPHIL % 0.9 % (0.8-7.0); EOSINOPHILS # 0.08 x10^3/uL (0.04-0.54); MCHC 32.0 g/dl (32.3-36.5); MEAN CELL VOLUME 94.9 fl (79.0-92.2); MEAN PLT VOLUME 11.4 fl (9.4-12.4); MONOCYTE # 0.46 x10^3/uL (0.30-0.82); MONOCYTE % 4.9 % (5.3-12.2); RDW 13.4 % (12.6-16.6)
[2024-09-22 09:22] LABS: CREATININE 0.7 mg/dL (0.55-1.3)
[2024-09-22 09:24] LABS: ALK PHOS 111.0 U/L (45-117)
[2024-09-22 09:26] LABS: CO2 28.0 mmol/L (21-32); GLUCOSE,RANDOM 82.0 mg/dL (74-106); SGPT/ALT 23.0 U/L (13-61)
[2024-09-22 09:27] LABS: SGOT/AST 21.0 U/L (15-37); TOT PROT 5.8 g/dl (6.4-8.2)
[2024-09-22] MEDS: ENOXAPARIN NA (PORCINE) 40 MG/0.4 ML DISP.SYRIN SQ SCH (10:12)
[2024-09-22] MEDS: BREXPIPRAZOLE (REXULTI) 1 MG TABLET (RESTRICTED TO PSYCIATRY) PO SCH (10:13)
[2024-09-22] MEDS: traZODone HCL 50 MG TABLET (FP) PO SCH (10:13)
[2024-09-22] MEDS: DOCUSATE SODIUM 100 MG CAPSULE (FP) PO SCH (10:13)
[2024-09-22] MEDS ORDERED: DOCUSATE NA 100 MG/10 ML UNIT-DOSE CUPS PO PRN (12:48)
[2024-09-22] MEDS: levETIRAcetam 500 MG/5 ML INJECTION VIAL IVPB ONE (13:23)
[2024-09-22] MEDS: DEXTROSE 5%-WATER - 1,000 ML IV SCH (13:24)
[2024-09-22] MEDS: ACETAMINOPHEN 1000 MG/100 ML BAG IVPB ONE (15:00)
[2024-09-22] MEDS: SENNOSIDES 8.8 MG/5 ML SYRUP PO SCH (21:52)
[2024-09-22] MEDS: ATORVASTATIN CA 40 MG TABLET (FP) PO SCH (21:52)
[2024-09-22] MEDS: levETIRAcetam 500 MG/5 ML ORAL SOLUTION (UNIT-DOSE CUPS) PO SCH (21:52)
[2024-09-22] MEDS ORDERED: levETIRAcetam 500 MG TABLET (FP) PO SCH (22:00)
[2024-09-23] MEDS: ASPIRIN 81 MG CHEWABLE TABLETS PO SCH (10:36)
[2024-09-23 13:02] LABS: ABSOLUTE IMMATURE GRANULOCYTES 0.02 x10^3/uL (0.0-0.031); BASOPHILS # 0.03 x10^3/uL (0.01-0.08); EOSINOPHIL % 0.5 % (0.8-7.0); EOSINOPHILS # 0.04 x10^3/uL (0.04-0.54); MCHC 31.8 g/dl (32.3-36.5); MEAN CELL VOLUME 95.9 fl (79.0-92.2); MEAN PLT VOLUME 10.9 fl (9.4-12.4); MONOCYTE # 0.46 x10^3/uL (0.30-0.82); MONOCYTE % 5.5 % (5.3-12.2); RDW 13.3 % (12.6-16.6)
[2024-09-23 13:23] LABS: CO2 31.0 mmol/L (21-32); GLUCOSE,RANDOM 157.0 mg/dL (74-106)
[2024-09-23 13:26] LABS: CREATININE 0.6 mg/dL (0.55-1.3); SGOT/AST 26.0 U/L (15-37); SGPT/ALT 25.0 U/L (13-61)
[2024-09-23 13:28] LABS: TOT PROT 5.9 g/dl (6.4-8.2)
[2024-09-23 13:29] LABS: ALK PHOS 109.0 U/L (45-117)
[2024-09-23] MEDS: KCL 10 MEQ IVPB 10 MEQ/100 ML INFUS.BAG IVPB SCH (13:45)
[2024-09-23] MEDS ORDERED: ACETAMINOPHEN 1000 MG/100 ML BAG IVPB PRN (17:05)
[2024-09-23] MEDS: methylPREDNISolone NA SUCC 40 MG/1 ML VIAL IVPUSH ONE (17:15)
[2024-09-23] MEDS: levETIRAcetam 500 MG/5 ML INJECTION VIAL IVPB ONE (17:16)
[2024-09-23] MEDS: PIPERACILLIN/TAZOB 3.375 GM 3.375 GM in DEXTROSE 5%-WATER - 50 ML IVPB ONE (17:23)
[2024-09-23] MEDS: methylPREDNISolone NA SUCC 40 MG/1 ML VIAL IVPUSH SCH (21:31)
[2024-09-23] MEDS: levETIRAcetam 500 MG/5 ML INJECTION VIAL IVPB SCH (21:32)
[2024-09-24] MEDS: PIPERACILLIN/TAZOB 3.375 GM 3.375 GM in DEXTROSE 5%-WATER - 50 ML IVPB SCH ×3 (02:25→19:41)
[2024-09-24] MEDS: traZODone HCL 50 MG TABLET (FP) PO ONE (05:48)
[2024-09-24 08:35] LABS: MCHC 32.2 g/dl (32.3-36.5); MEAN CELL VOLUME 94.6 fl (79.0-92.2); MEAN PLT VOLUME 11.3 fl (9.4-12.4); RDW 13.4 % (12.6-16.6)
[2024-09-24 09:10] LABS: CO2 27.0 mmol/L (21-32); CREATININE 0.8 mg/dL (0.55-1.3); GLUCOSE,RANDOM 158.0 mg/dL (74-106); SGPT/ALT 28.0 U/L (13-61)
[2024-09-24 09:12] LABS: TOT PROT 5.7 g/dl (6.4-8.2)
[2024-09-24 09:13] LABS: ALK PHOS 100.0 U/L (45-117); SGOT/AST 27.0 U/L (15-37)
[2024-09-24] MEDS: AMINO ACIDS 4.25%/D5W 1,000 ML IV SCH (13:14)
[2024-09-24] MEDS: POTASSIUM CHLORIDE 10 MEQ in AMINO ACIDS 4.25%/D5W 1,000 ML IV SCH (14:20)
[2024-09-25] MEDS ORDERED: BISACODYL 10 MG SUPP.RECT PR PRN (09:27)
[2024-09-25] MEDS: methylPREDNISolone NA SUCC 40 MG/1 ML VIAL IVPUSH SCH (11:08)
[2024-09-25 15:53] VITALS: RESP 18
[2024-09-25] MEDS: DEXTROSE 5%-WATER - 1,000 ML IV SCH (17:11)
[2024-09-25] MEDS: DEXTROSE 5%-0.45% SALINE 1,000 ML IV SCH (20:22)
[2024-09-26] MEDS: methylPREDNISolone NA SUCC 40 MG/1 ML VIAL IVPUSH SCH (10:13)
[2024-09-26] MEDS: AMOX TR/POTASSIUM CLAVULANATE 250 MG/5 ML BOTTLE PO SCH (10:13)
[2024-09-26] MEDS: traZODone HCL 50 MG TABLET (FP) PO ONE (14:31)
[2024-09-26] MEDS: BREXPIPRAZOLE (REXULTI) 1 MG TABLET (RESTRICTED TO PSYCIATRY) PO ONE (14:32)
[2024-09-26] MEDS: traZODone HCL 50 MG TABLET (FP) PO SCH (21:28)
[2024-09-26 22:32] VITALS: BP 112/63; PULSE 83; TEMP 98.8
[2024-09-27] MEDS ORDERED: BREXPIPRAZOLE (REXULTI) 1 MG TABLET (RESTRICTED TO PSYCIATRY) PO SCH (10:00)
== END 2024-09-26 22:42 | disposition hospice, inpatient (51) | DRG 56 ==
LOC: JER 15:40 → JERBED 19:22 → J8W 22:20
PROVIDERS: ADMIT Internal Medicine; ATTEND Nurse Practitioner Acute Care
DX: G30.9 Alzheimer's disease, unspecified (principal); E43 Unspecified severe protein-calorie malnutrition; G93.41 Metabolic encephalopathy; J69.0 Pneumonitis due to inhalation of food and vomit; F02.80 Dementia in other diseases classified elsewhere, unspecified severity, without behavioral disturbance, psychotic disturbance, mood disturbance, and anxiety; I25.10 Atherosclerotic heart disease of native coronary artery without angina pectoris; E78.5 Hyperlipidemia, unspecified; E86.0 Dehydration; R62.7 Adult failure to thrive; D64.9 Anemia, unspecified; I48.91 Unspecified atrial fibrillation; E87.6 Hypokalemia; Z68.21 Body mass index [BMI] 21.0-21.9, adult
CPT/HCPCS: 36415; 70450-TC; 71045-TC-FY; 80053; 80177; 81003; 82550; 82962; 83605; 83735; 84100; 84484; 85025; 85610; 85730; 86850; 86900; 86901; 87040; 87086; 87637-QW; 93005; 93010; 97161-GP; 99285-25